=== PATIENT | female | born 1950 | race American Indian/Alaskan Native ===

== ENCOUNTER 2016-10-16 15:11 | Emergency (ER) | payer MEDICAID, MEDICARE ==
--- NOTE | 2016-10-16 16:28 | C.PDOC ---
History Of Present Illness 65 y/o female c/o feeling like gum is stuck under her teeth; sts she fell asleep with gum in her mouth recently. pt feels like something moving in mouth since she had several teeth extracted a few weeks ago. pt had follow up with dentist today and was told mouth healing well and put onto penicillin. no fevers, pt sts she is having a hard time opening mouth. Time Seen by Provider: 10/16/16 15:29 Chief Complaint (Nursing): Dental Pain Past Medical History Reviewed: Historical Data, Nursing Documentation, Vital Signs Vital Signs: Last Vital Signs Temp 97.8 F 10/16/16 16:49 Pulse 56 L 10/16/16 16:49 Resp 18 10/16/16 16:49 BP 113/76 10/16/16 16:49 Pulse Ox 98 10/16/16 16:49 - Medical History PMH: HTN Other Surgeries: dental work Family History: States: Unknown Family Hx - Social History Hx Tobacco Use: No Hx Alcohol Use: No Hx Substance Use: No - Immunization History Hx Tetanus Toxoid Vaccination: No Hx Influenza Vaccination: No Hx Pneumococcal Vaccination: No Review Of Systems Constitutional: Negative for: Fever, Chills ENT: Positive for: Mouth Pain Cardiovascular: Negative for: Chest Pain, Palpitations Physical Exam - Physical Exam Appears: Non-toxic, No Acute Distress Skin: Normal Color, Warm, Dry Head: Atraumatic, Normacephalic Oral Mucosa: Moist, No Drooling Tongue: Normal Appearing, No Swelling Lips: Normal Appearing, No Swelling Teeth: Other (partly edentulous, with well healing areas in right and left upper mouth in posterior, mildly tender. abloe to open and close mouth with no difficulty, bilateral tmj not tender. ) Gingiva: Tender (mildly tender in upper posterior near extraction sites) Throat: Drooling Neck: Normal ROM, No Midline Cervical Tenderness, No Paracervical Tenderness Lymphatic: No Adenopathy ED Course And Treatment O2 Sat by Pulse Oximetry: 97 Medical Decision Making Medical Decision Making: continue pec f/u dental Disposition Counseled Patient/Family Regarding: Diagnosis, Need For Followup - Disposition Disposition: HOME/ ROUTINE Disposition Time: 16:31 Condition: GOOD Additional Instructions: Take penicillin as directed. Tylenol for pain if needed. FOllow up with your dentist. Forms: General Discharge Instructions - Clinical Impression Clinical Impression: Pain, dental
[2016-10-16 16:51] VITALS: BP 113/76; PULSE 56; RESP 18; TEMP 97.8
[2016-10-16 20:39] VITALS: O2SAT 97
== END 2016-10-16 16:50 | disposition home or self-care (01) ==
LOC: C.ER 15:11
DX: K08.89 Other specified disorders of teeth and supporting structures (principal)